=== PATIENT | female | born 1995 | race Caucasian/White ===

== ENCOUNTER → 2016-09-24 | Outpatient (REF) | payer BC | LOC: M SFHCWAGY 10:35 | PROVIDERS: ATTEND Family Medicine | DX: Z11.3 Encounter for screening for infections with a predominantly sexual mode of transmission (principal) | CPT/HCPCS: 87491; 87591; G0123 ==

== ENCOUNTER → 2016-12-15 | Outpatient (CLI) | payer BC ==
[~2016-12-15] MED LIST: PRENTAB8 PO
== END ==
LOC: M WUC 13:51
PROVIDERS: ATTEND Specialist
DX: O20.0 Threatened abortion (principal)

== ENCOUNTER → 2016-12-16 | Outpatient (CLI) | payer BC | LOC: M WUC 12:49 | PROVIDERS: ATTEND Specialist | DX: O20.0 Threatened abortion (principal) ==

== ENCOUNTER → 2017-02-24 | Outpatient (CLI) | payer BC ==
[2017-02-24 13:44] LABS: BASO % 0.6 % (0.0-1.0); EOS # 0.1 K/mm3 (0.0-0.50); EOS % 0.9 % (0.0-3.0); LARGE UNSTAINED CELL # 0.1 K/mm3 (0.0-0.4); LARGE UNSTAINED CELL % 0.9 % (0.0-4.0); LYMPH # 1.6 K/mm3 (1.5-6.5); LYMPH % 20.9 % (24.0-44.0); MEAN CORPUSCULAR HEMOGLOBIN 31.7 pg (27.0-33.0); MEAN CORPUSCULAR HGB CONC 33.9 g/dl (32.0-36.5); MEAN CORPUSCULAR VOLUME 93.5 fl (80.0-96.0); MONO # 0.3 K/mm3 (0.0-0.8); MONO % 4.1 % (0.0-5.0); NEUTROPHILS # 5.4 K/mm3 (1.8-7.7); NEUTROPHILS % 72.5 % (36.0-66.0); PLATELET COUNT, AUTOMATED 173 k/mm3 (150-450); RED CELL DISTRIBUTION WIDTH 11.6 % (11.5-14.5); WHITE BLOOD COUNT 7.5 K/mm3 (4.0-10.0)
[2017-02-25 10:05] LABS: HBsAg Prenatal NEGATIVE (NEGATIVE)
== END ==
LOC: M WUC 09:37
PROVIDERS: ATTEND Advanced Practice Midwife
DX: Z36 Encounter for antenatal screening of mother (principal); Z3A.00 Weeks of gestation of pregnancy not specified

== ENCOUNTER → 2017-02-24 | Outpatient (CLI) | payer BC | LOC: M WUC 09:33 | PROVIDERS: ATTEND Advanced Practice Midwife | DX: R10.2 Pelvic and perineal pain (principal) ==

== ENCOUNTER → 2017-02-26 | Outpatient (CLI) | payer BC | LOC: M WUC 09:11 | PROVIDERS: ATTEND Specialist | DX: O20.0 Threatened abortion (principal); Z3A.00 Weeks of gestation of pregnancy not specified ==

== ENCOUNTER → 2017-03-03 | Outpatient (CLI) | payer BC ==
--- NOTE | 2017-03-04 07:45 | REP ---
Clinical: Dating and viability. Technique: 12/11/2016 Findings: Single live early intrauterine is appreciated. Gestational sac with yolk sac and pole identified. [place]-rump length of 7 mm corresponds to 6 weeks 4 days gestational age with estimated date of delivery 10/23/2017 . heart rate equals 122 beats per minute. No gross abnormalities are identified. Impression: Single live early intrauterine at 6 weeks 4 days gestational age. Complete anatomical assessment should be performed and 19-20 weeks. Signed by Rivera Manriquez MD 03/04/2017 07:37 A
== END ==
LOC: M RAD 13:55
PROVIDERS: ATTEND Nurse Practitioner Women's Health
DX: O99.89 Other specified diseases and conditions complicating pregnancy, childbirth and the puerperium (principal); R10.30 Lower abdominal pain, unspecified; Z3A.00 Weeks of gestation of pregnancy not specified

== ENCOUNTER 2017-04-25 11:11 | Emergency (ER) | payer BC, MEDICAID ==
[~2017-04-25] VITALS: Ht 154.9 cm; Wt 72.3 kg
[2017-04-25 12:47] LABS: BASO % 0.2 % (0.0-1.0); EOS # 0.1 K/mm3 (0.0-0.50); EOS % 0.8 % (0.0-3.0); LARGE UNSTAINED CELL # 0.1 K/mm3 (0.0-0.4); LARGE UNSTAINED CELL % 1.1 % (0.0-4.0); LYMPH # 1.1 K/mm3 (1.5-6.5); LYMPH % 11.5 % (24.0-44.0); MEAN CORPUSCULAR HEMOGLOBIN 32.7 pg (27.0-33.0); MEAN CORPUSCULAR HGB CONC 35.6 g/dl (32.0-36.5); MEAN CORPUSCULAR VOLUME 91.8 fl (80.0-96.0); MONO # 0.4 K/mm3 (0.0-0.8); MONO % 3.8 % (0.0-5.0); NEUTROPHILS # 7.6 K/mm3 (1.8-7.7); NEUTROPHILS % 82.6 % (36.0-66.0); PLATELET COUNT, AUTOMATED 162 k/mm3 (150-450); RED CELL DISTRIBUTION WIDTH 12.8 % (11.5-14.5); WHITE BLOOD COUNT 9.2 K/mm3 (4.0-10.0)
[2017-04-25 13:23] LABS: ANION GAP 7 MEQ/L (8-16); BLOOD UREA NITROGEN 10 MG/DL (7-18); CALCIUM LEVEL 9.5 MG/DL (8.5-10.1); CARBON DIOXIDE LEVEL 25 MEQ/L (21-32); CHLORIDE LEVEL 106 MEQ/L (98-107); CREATININE FOR GFR 0.54 MG/DL (0.55-1.02); FREE T4 1.06 NG/DL (0.76-1.46); GLOMERULAR FILTRATION RATE > 60.0 (>60); GLUCOSE, FASTING 81 MG/DL (70-105); MAGNESIUM LEVEL 2.1 MG/DL (1.8-2.4); SODIUM LEVEL 138 MEQ/L (136-145)
[2017-04-25 13:46] VITALS: BP 125/60
--- NOTE | 2017-04-25 20:31 | ECGEPIP ---
Stationary ECG Study 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
== END 2017-04-25 13:48 | disposition home or self-care (01) ==
LOC: M ED 11:11
DX: R42 Dizziness and giddiness (principal); Z79.899 Other long term (current) drug therapy

== ENCOUNTER → 2017-04-28 | Outpatient (REF) | payer MEDICAID | LOC: M LAB REF 14:38 | PROVIDERS: ATTEND Specialist | DX: Z53.9 Procedure and treatment not carried out, unspecified reason (principal) ==

== ENCOUNTER → 2017-05-20 | Outpatient (CLI) | payer MEDICAID ==
--- NOTE | 2017-05-20 11:55 | REP ---
Clinical: Anatomical evaluation. Comparison: 03/03/2017 . Findings: Examination demonstrates a single live intrauterine in variable presentation. motion is identified by technologist. Placenta is noted posteriorly and grade zero without evidence for placenta previa or abruption. Amniotic fluid volume is normal. Cervix measures 3.5 cm in length and appears closed. No evidence for nuchal cord. Gestational age by LMP 18 weeks 0 days with GERMAN 10/21/2017 . Gestational age by current measurements 17 weeks 4 days with GERMAN 10/24/2017 . FHR equals 142 beats per minute. BPD 4.0 cm 18 weeks 1 day HC 14.5 cm 17 weeks 5 days AC 11.2 cm 17 weeks 0 days FL 2.5 cm 17 weeks 4 days HL 2.4 cm 17 weeks 3 days HC/AC ratio 1.29 Estimated weight 191 grams ( 23rd percentile). Anatomical assessment demonstrates normal structures including cranium, choroid plexus, cavum, cerebellum/posterior fossa, facial features, lungs, diaphragm, stomach, cord insertion/three-vessel cord, kidneys/bladder, spine, and extremities. Impression: 1. Single live intrauterine in variable presentation demonstrating appropriate interval growth. 2. Limited evaluation of the heart and ventricular outflow tracts noted along with asymmetry to the umbilical arteries. Findings may warrant reevaluation and follow-up. The remainder of the anatomical assessment is complete and normal. Signed by Rivera Manriquez MD 05/20/2017 11:46 A
== END ==
LOC: M RAD 10:33
PROVIDERS: ATTEND Obstetrics & Gynecology
DX: Z36 Encounter for antenatal screening of mother (principal); Z3A.17 17 weeks gestation of pregnancy

== ENCOUNTER 2017-06-10 18:16 | Outpatient (CLI) | payer MEDICAID ==
[~2017-06-10] VITALS: Ht 154.9 cm; Wt 76.6 kg
[2017-06-10 18:49] VITALS: BP 134/75
--- NOTE | 2017-06-10 19:24 | IPNPDOC ---
Subjective Date Seen The patient was seen on 06/10/17. Subjective Chief Complaint/HPI The patient is a 21-year-old female admitted with a reason for visit of Right Sided Pain Times 3 Days. SUBJECTIVE: Patient is a 21-year-old female 2 para 0010, at 21 weeks gestation presents with complaints of right-sided discomfort for 3 days. Denies regular cramping, contractions, bleeding, or loss of fluid OBJECTIVE PHYSICAL EXAMINATION: VITAL SIGNS: Please see below. GENERAL: No apparent distress, smiling, speaking with partner. ABDOMINAL: Abdomen soft, nontender, appropriate for gestation. Patient describes the pain as radiating from posterior hip line into right groin, right groin is tender to palpation left groin and remainder of abdomen is nontender. No contractions noted. heart 145. Reassuring for gestation. PSYCHOLOGICAL: Father of the baby is present and supportive. LABORATORY DATA: Please see below. MICROBIOLOGY: Please see below. ASSESSMENT AND PLAN: This is a 21-year-old female, 2, para 0010 with round ligament discomfort. Reviewed treatment for round ligament pain including support shoes, maternity support belt, good body mechanics, regular activity. Discharged home with instructions to keep next appointment. Follow-up ultrasound order given. Warnings reviewed VS, I&O, 24H, Fishbone Vital Signs/I&O Vital Signs Date Time Temp Pulse Resp B/P (MAP) Pulse Ox O2 Delivery O2 Flow Rate FiO2 06/10/17 18:49 98.2 73 16 134/75 (94) Rubina Sanchez CNM Jun 10, 2017 19:24
== END 2017-06-10 19:20 | disposition home or self-care (01) ==
LOC: M LDO 18:16
PROVIDERS: ATTEND Advanced Practice Midwife
DX: O26.892 Other specified pregnancy related conditions, second trimester (principal); R10.2 Pelvic and perineal pain; Z3A.21 21 weeks gestation of pregnancy

== ENCOUNTER → 2017-06-10 | Outpatient (CLI) | payer MEDICAID | LOC: M RAD 17:07 | PROVIDERS: ATTEND Specialist | DX: O26.892 Other specified pregnancy related conditions, second trimester (principal); R10.2 Pelvic and perineal pain; Z3A.21 21 weeks gestation of pregnancy ==

== ENCOUNTER → 2017-06-15 | Outpatient (CLI) | payer MEDICAID ==
--- NOTE | 2017-06-16 08:07 | REP ---
Obstetric ultrasound for anatomy: There is a single intrauterine gestation in a transverse lie with the head to the maternal right. heart rate is 100 x 7 beats per minute. There is sent is posterior. There is no placenta previa or abruptio. Placenta is grade zero. The amniotic fluid volume subjectively is normal. The cervix measures 3.4 cm length. By the ultrasound today the gestational age is 21 weeks 3 days with an GERMAN of 10/23/2017. By the first ultrasound gestational age is 21 weeks 3 days. By LMP gestational age is 21 weeks 5 days with an GERMAN of 10/21/2017. weight is 490 grams (0 pounds, 14 ounces). This is the 31st percentile for 21 weeks 5 days. The following anatomic structures are satisfactory demonstrated and unremarkable: Intracranial ventricles, cerebellum, face, upper lip, cavum septum pellucidum, choroid plexus, lungs, four-chamber heart, diaphragm, stomach, cord insertion, three-vessel cord, kidneys, spine and lower extremities. Suboptimally demonstrated because of position are the cardiac right and left ventricular outflow tracts, bladder and upper extremities. A followup study dedicated to these structures might be considered. Otherwise, there are no anomalies. Signed by Jean Deluca MD 06/16/2017 07:59 A
== END ==
LOC: M RAD 17:08
PROVIDERS: ATTEND Advanced Practice Midwife
DX: Z36.89 Encounter for other specified antenatal screening (principal); Z3A.21 21 weeks gestation of pregnancy

== ENCOUNTER → 2017-07-22 | Outpatient (CLI) | payer BC, MEDICAID ==
[2017-07-22 12:27] LABS: MEAN CORPUSCULAR HEMOGLOBIN 32.1 pg (27.0-33.0); MEAN CORPUSCULAR HGB CONC 33.5 g/dl (32.0-36.5); MEAN CORPUSCULAR VOLUME 95.7 fl (80.0-96.0); PLATELET COUNT, AUTOMATED 164 10^3/uL (150-450); RED CELL DISTRIBUTION WIDTH 12.5 % (11.5-14.5); WHITE BLOOD COUNT 11.4 10^3/uL (4.0-10.0)
== END ==
LOC: M LAB 10:16
PROVIDERS: ATTEND Advanced Practice Midwife
DX: Z34.82 Encounter for supervision of other normal pregnancy, second trimester (principal); Z36.89 Encounter for other specified antenatal screening

== ENCOUNTER 2017-10-19 22:02 | Inpatient (IN) | payer BC, MEDICAID ==
[2017-10-19] MEDS ORDERED: LR 1,000 ML IV (23:15)
[2017-10-19 23:48] LABS: HEMATOCRIT 27.9 % (36.0-47.0); HEMOGLOBIN 9.2 g/dl (12.0-16.0); MEAN CORPUSCULAR HEMOGLOBIN 28.4 pg (27.0-33.0); MEAN CORPUSCULAR VOLUME 86.1 fl (80.0-96.0); PLATELET COUNT, AUTOMATED 159 10^3/uL (150-450); RED BLOOD COUNT 3.24 10^6/uL (4.00-5.40); RED CELL DISTRIBUTION WIDTH 14.4 % (11.5-14.5); WHITE BLOOD COUNT 16.2 10^3/uL (4.0-10.0)
[2017-10-20] MEDS ORDERED: OXYTOCIN 30 UNITS IN 0.9% NaCl 500ML IV BAG (J2590) As Ordered (00:27)
[2017-10-20] MEDS ORDERED: FENTANYL 2MCG/ML ROPIVACAINE 0.2% IN 0.9% NACL 200ML IVBAG As Ordered (00:28)
[2017-10-20] MEDS ORDERED: REFRIGERATOR IV KEYS XX (01:49)
[2017-10-20] MEDS ORDERED: diphenhydrAMINE INJ 50MG/ML VIAL (J1200) IV (01:49)
[2017-10-20] MEDS ORDERED: NALOXONE INJ 0.4 MG/1 ML VIAL (J2310) IV (01:49)
[2017-10-20] MEDS ORDERED: EPIDURAL/PCA KEYS XX (01:49)
[2017-10-20] MEDS ORDERED: ONDANSETRON 4MG/2ML VIAL (J2405) IV (01:49)
[2017-10-20] MEDS ORDERED: EPIDURAL COMMENT XX (01:49)
[2017-10-20] MEDS ORDERED: LACTATED RINGER'S 1000 ML IV (01:49)
[2017-10-20] MEDS ORDERED: ePHEDrine INJ 50 MG/ML VIAL IV (01:49)
[2017-10-20] MEDS ORDERED: FENTANYL/ROPIVACAINE/NACL BAG 200 ML EPIDURAL (01:49)
[2017-10-20] MEDS ORDERED: RHOGAM 300 MCG (1500 IU) INJ (J2790) IM (05:15)
[2017-10-20] MEDS ORDERED: DIBUCAINE 1% OINTMENT 30GM TOP (05:15)
[2017-10-20] MEDS: OXYTOCIN DRIP 30 UNITS in APPROPRIATE DILUENT 1 EA IV (05:56)
[2017-10-20] MEDS: IBUPROFEN 800 MG TAB PO ×3 (05:56→23:45)
[2017-10-20] MEDS: LR 1,000 ML IV (05:56)
[2017-10-20] MEDS: LACTATED RINGER'S 1000 ML IV (05:57)
[2017-10-20] MEDS: ACETAMINOPHEN 500 MG TAB PO ×3 (07:05→19:52)
[2017-10-20] MEDS: PRENATAL VITAMINS CHEWABLE TABLET PO (07:54)
[2017-10-20] MEDS: PERCOCET 5MG/325MG TAB PO (23:45)
[2017-10-21] MEDS: ACETAMINOPHEN 500 MG TAB PO (05:47)
[2017-10-21] MEDS: IBUPROFEN 800 MG TAB PO ×2 (08:05→19:34)
[2017-10-21] MEDS: PRENATAL VITAMINS CHEWABLE TABLET PO (08:05)
[2017-10-21] MEDS: PERCOCET 5MG/325MG TAB PO ×3 (11:53→21:07)
[2017-10-21] MEDS: DOCUSATE SODIUM 100 MG CAP PO (19:34)
[2017-10-22] MEDS: PERCOCET 5MG/325MG TAB PO ×2 (02:18→07:47)
[2017-10-22] MEDS: PRENATAL VITAMINS CHEWABLE TABLET PO (09:00)
[2017-10-22] MEDS: IBUPROFEN 800 MG TAB PO (12:03)
[2017-10-22] MEDS: MEASLES,MUMPS,RUBELLA VACCINE INJ (MMR-II) (90707) SC (14:00)
== END 2017-10-22 14:10 | disposition home or self-care (01) | DRG 560 ==
LOC: M LDO 22:02 → M OBS 10-20 07:56 → M LDI 23:15
PROVIDERS: Obstetrics & Gynecology
PROC: 10E0XZZ Delivery of Products of Conception, External Approach (ICD-10-PCS; principal; 2017-10-20)
PROC: 0HQ9XZZ Repair Perineum Skin, External Approach (ICD-10-PCS; 2017-10-20)
DX: O69.1XX0 Labor and delivery complicated by cord around neck, with compression, not applicable or unspecified (principal); O70.0 First degree perineal laceration during delivery; Z3A.39 39 weeks gestation of pregnancy; Z37.0 Single live birth

== ENCOUNTER → 2017-10-22 | Day surgery (SDC) | payer BC, MEDICAID ==
[2017-10-22] MEDS: NS 1,000 ML IV (19:54)
== END | disposition home or self-care (01) ==
LOC: M ED 19:19 → M SDC 21:45
DX: G97.1 Other reaction to spinal and lumbar puncture (principal)
CPT/HCPCS: 62273

== ENCOUNTER → 2017-11-20 | Outpatient (REF) | payer BC, MEDICAID ==
[2017-11-20 21:49] LABS: APPEARANCE, URINE CLEAR (CLEAR); BACTERIA, URINE AUTO NEGATIVE (NEGATIVE); BILIRUBIN, URINE AUTO NEGATIVE (NEGATIVE); BLOOD, URINE BLOOD 2+ (NEGATIVE); COLOR, URINE STRAW (YELLOW); GLUCOSE, URINE (UA) AUTO NEGATIVE (NEGATIVE); KETONE, URINE AUTO NEGATIVE (NEGATIVE); LEUKOCYTE ESTERASE, URINE AUTO 2+ (NEGATIVE); NITRITE, URINE AUTO NEGATIVE (NEGATIVE); PROTEIN, URINE AUTO NEGATIVE (NEGATIVE); RBC, URINE AUTO 1 /HPF (0-3); SPECIFIC GRAVITY URINE AUTO 1.005 (1.002-1.035); SQUAMOUS EPITHELIAL CELL UR AU 0 /HPF (0-6); UROBILINOGEN, URINE AUTO 0.2 mg/dL (0.0-2.0); WBC, URINE AUTO 8 /HPF (0-3)
== END ==
LOC: M LAB REF 21:27
DX: N39.0 Urinary tract infection, site not specified (principal)
CPT/HCPCS: 81001

== ENCOUNTER → 2018-04-05 | Outpatient (CLI) | payer BC, MEDICAID | LOC: M PAIN 14:15 | DX: M54.2 Cervicalgia (principal); M79.1 Myalgia; M54.5 Low back pain; G89.29 Other chronic pain; F33.9 Major depressive disorder, recurrent, unspecified; F41.9 Anxiety disorder, unspecified; G47.00 Insomnia, unspecified; Z79.899 Other long term (current) drug therapy; Z87.891 Personal history of nicotine dependence | CPT/HCPCS: G0463 ==

== ENCOUNTER → 2018-04-07 | Outpatient (CLI) | payer BC, MEDICAID | LOC: M RAD 16:52 | DX: M54.2 Cervicalgia (principal) | CPT/HCPCS: 72141 ==

== ENCOUNTER → 2018-04-26 | Outpatient (CLI) | payer BC, MEDICAID | LOC: M PAIN 14:30 | DX: M50.10 Cervical disc disorder with radiculopathy, unspecified cervical region (principal); G89.29 Other chronic pain; F33.0 Major depressive disorder, recurrent, mild; F41.9 Anxiety disorder, unspecified; G47.00 Insomnia, unspecified; Z79.899 Other long term (current) drug therapy; Z87.891 Personal history of nicotine dependence | CPT/HCPCS: G0463 ==

== ENCOUNTER → 2018-05-08 | Outpatient (CLI) | payer MEDICAID ==
[~2018-05-08] MED LIST changes: +ISOVUE-M 300 61% 15ML VIAL (Q9967) As Ordered; +LIDOCAINE 1% SDV INJ 30 ML VIAL As Ordered; -PRENTAB8 PO; +diazePAM 5 MG TAB As Ordered; +methylPREDNISolone SUSP 40 MG/ML (DEPO-medrol) VIAL (J1030) As Ordered; +oxyCODONE 5MG TAB As Ordered
== END ==
LOC: M PAIN 12:45
DX: G89.29 Other chronic pain (principal); M50.10 Cervical disc disorder with radiculopathy, unspecified cervical region; F32.9 Major depressive disorder, single episode, unspecified; F41.9 Anxiety disorder, unspecified; G47.00 Insomnia, unspecified; Z79.899 Other long term (current) drug therapy
CPT/HCPCS: J1030

== ENCOUNTER → 2018-05-25 | Outpatient (CLI) | payer MEDICAID, BC | LOC: M PAIN 15:30 | DX: Z53.29 Procedure and treatment not carried out because of patient's decision for other reasons (principal) ==

== ENCOUNTER 2018-08-08 18:38 | Emergency (ER) | payer BC, MEDICAID ==
[2018-08-08] MEDS: diphenhydrAMINE 50 MG CAP PO (19:51)
[2018-08-08 20:08] LABS: BASO % 0.3 % (0.0-1.0); EOS % 0.4 % (0.0-3.0); HEMATOCRIT 42.4 % (36.0-47.0); HEMOGLOBIN 14.4 g/dl (12.0-15.5); IMMATURE GRANULOCYTE % 0.3 % (0-3.0); MEAN CORPUSCULAR HEMOGLOBIN 30.1 pg (27.0-33.0); MEAN CORPUSCULAR VOLUME 88.7 fl (80.0-96.0); MONO # 0.4 10^3/uL (0.0-0.8); MONO % 5.5 % (0.0-5.0); NEUTROPHILS # 5.4 10^3/uL (1.8-7.7); NEUTROPHILS % 68.5 % (36.0-66.0); PLATELET COUNT, AUTOMATED 235 10^3/uL (150-450); RED BLOOD COUNT 4.78 10^6/uL (4.00-5.40); RED CELL DISTRIBUTION WIDTH 13.1 % (11.5-14.5); WHITE BLOOD COUNT 7.8 10^3/uL (4.0-10.0)
[2018-08-08 20:19] LABS: ANION GAP 8 MEQ/L (8-16); BLOOD UREA NITROGEN 7 MG/DL (7-18); C REACTIVE PROTEIN QUANTITATIV < 0.30 MG/DL (0.00-0.30); CALCIUM LEVEL 8.4 MG/DL (8.5-10.1); CARBON DIOXIDE LEVEL 25 MEQ/L (21-32); CHLORIDE LEVEL 109 MEQ/L (98-107); CREATININE FOR GFR 0.74 MG/DL (0.55-1.30); GLOMERULAR FILTRATION RATE > 60.0 (>60); GLUCOSE, FASTING 98 MG/DL (70-100); POTASSIUM SERUM 3.9 MEQ/L (3.5-5.1); SODIUM LEVEL 142 MEQ/L (136-145)
[2018-08-08 20:55] LABS: ERYTHROCYTE SEDIMENTATION RATE 6 mm/hr (0-20)
[2018-08-08] MEDS: IBUPROFEN 600 MG TAB PO (21:45)
[2018-08-08] MEDS: predniSONE 20 MG TAB PO (21:45)
== END 2018-08-08 21:51 | disposition home or self-care (01) ==
LOC: M ED 18:38
DX: M79.89 Other specified soft tissue disorders (principal); J45.909 Unspecified asthma, uncomplicated; M54.12 Radiculopathy, cervical region; Z79.899 Other long term (current) drug therapy
CPT/HCPCS: 80048

== ENCOUNTER 2018-10-22 00:44 | Emergency (ER) | payer BC, MEDICAID ==
[~2018-10-22] VITALS: Ht 154.9 cm; Wt 67.3 kg
[2018-10-22 00:44] VITALS: BP 105/61
[~2018-10-22 00:44] MED LIST changes: +COLA100C5 PO; +DULO1CAP3; +IBUP-1022 PO; +IBUP-1114 PO; -ISOVUE-M 300 61% 15ML VIAL (Q9967) As Ordered; -LIDOCAINE 1% SDV INJ 30 ML VIAL As Ordered; +MAPA500T2 PO; +PRED20TA PO; +PRENTAB8 PO; +TIZA6CAP; -diazePAM 5 MG TAB As Ordered; -methylPREDNISolone SUSP 40 MG/ML (DEPO-medrol) VIAL (J1030) As Ordered; -oxyCODONE 5MG TAB As Ordered
== END 2018-10-22 02:02 | disposition left against medical advice (07) ==
LOC: M ED 00:44
DX: Z53.21 Procedure and treatment not carried out due to patient leaving prior to being seen by health care provider (principal)

== ENCOUNTER 2018-10-25 22:43 | Emergency (ER) | payer BC, MEDICAID ==
[~2018-10-25] VITALS: Ht 154.9 cm; Wt 69.1 kg
[2018-10-25] MEDS ORDERED: REGL10TA6 PO (22:52)
[2018-10-25] MEDS ORDERED: SUMA100T2 (22:52)
[2018-10-25] MEDS ORDERED: NS 1,000 ML IV ONE (23:30)
[2018-10-25] MEDS ORDERED: METOCLOPRAMIDE INJ 10MG/2ML VIAL (J2765) IV ONE (23:30)
[2018-10-26 00:13] LABS: BASO % 0.4 % (0.0-1.0); EOS # 0.1 10^3/uL (0.0-0.50); EOS % 0.9 % (0.0-3.0); HEMATOCRIT 35.2 % (36.0-47.0); HEMOGLOBIN 12.1 g/dl (12.0-15.5); LYMPH # 1.4 10^3/uL (1.5-6.5); LYMPH % 18.9 % (24.0-44.0); MEAN CORPUSCULAR HEMOGLOBIN 29.5 pg (27.0-33.0); MEAN CORPUSCULAR HGB CONC 34.4 g/dl (32.0-36.5); MEAN CORPUSCULAR VOLUME 85.9 fl (80.0-96.0); MONO # 0.5 10^3/uL (0.0-0.8); MONO % 7.3 % (0.0-5.0); NEUTROPHILS # 5.3 10^3/uL (1.8-7.7); NEUTROPHILS % 71.8 % (36.0-66.0); PLATELET COUNT, AUTOMATED 149 10^3/uL (150-450); WHITE BLOOD COUNT 7.4 10^3/uL (4.0-10.0)
[2018-10-26 00:18] LABS: ALBUMIN 3.2 GM/DL (3.2-5.2); ALT/SGPT 522 U/L (12-78); BILIRUBIN,TOTAL 0.4 MG/DL (0.2-1.0); BLOOD UREA NITROGEN 4 MG/DL (7-18); CALCIUM LEVEL 8.3 MG/DL (8.5-10.1); CARBON DIOXIDE LEVEL 24 MEQ/L (21-32); CHLORIDE LEVEL 107 MEQ/L (98-107); CK-MB VALUE MASS < 1.0 NG/ML (<3.6); CPK CREATINE PHOSPHOKINASE 48 U/L (26-192); CREATININE FOR GFR 0.46 MG/DL (0.55-1.30); GLOMERULAR FILTRATION RATE > 60.0 (>60); GLUCOSE, FASTING 78 MG/DL (70-100); MB/CK RELATIVE INDEX 2.08 (< OR =4); POTASSIUM SERUM 3.5 MEQ/L (3.5-5.1); SODIUM LEVEL 141 MEQ/L (136-145); TOTAL PROTEIN 6.3 GM/DL (6.4-8.2); TROPONIN I < 0.02 NG/ML (< 0.10)
--- NOTE | 2018-10-26 01:49 | REPVR ---
EXAM: US Abdomen Limited, Right Upper Quadrant EXAM DATE/TIME: 10/26/2018 1:00 AM CLINICAL HISTORY: 23 years old, female; Abnormal findings; Abnormal lab test; Elevated liver enzymes; Additional info: Elevated lft's, vomiting TECHNIQUE: Real-time ultrasound of the abdomen with image documentation. Examination was focused on the right upper quadrant. COMPARISON: No relevant prior studies available. FINDINGS: Liver: Subtle increased echogenicity of the portal triads, a nonspecific finding which can be seen with hepatitis. Gallbladder: No gallstones. No gallbladder wall thickening or pericholecystic fluid. Negative sonographic Jon's sign, as per the performing senior java architect. Common bile duct: No stones. No ductal dilatation. Pancreas: Unremarkable as visualized. Right kidney: No mass. No definite stones. No hydronephrosis. IMPRESSION: Subtle increased echogenicity of the portal triads, a nonspecific finding which can be seen with hepatitis. Electronically signed by: Tre Alan On 10/26/2018 01:48:50 AM
[2018-10-26 03:22] VITALS: BP 111/69
--- NOTE | 2018-10-26 12:11 | ED PDOC ---
Post-Departure Follow-Up qing foster faxed formal report of petey garcia for fu Lencho Hitchcock MD Oct 26, 2018 12:11
--- NOTE | 2018-10-27 00:43 | ECGEPIP ---
Stationary ECG Study 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
[2018-10-27 11:42] LABS: HEPATITIS B CORE ANTIBODY IGM NEGATIVE (NEGATIVE)
[2018-10-27 11:57] LABS: HEPATITIS B SURFACE ANTIGEN NEGATIVE (NEGATIVE)
[2018-10-27 12:01] LABS: HEPATITIS C VIRUS ABY INDEX > 11.0 INDEX (<0.8)
[2018-10-27 12:26] LABS: HEPATITIS A ANTIBODY IGM NEGATIVE (NEGATIVE)
[2018-10-27] MEDS ORDERED: OSEL75CA PO (16:52)
[2018-10-27] MEDS ORDERED: ONDA4TAB6 (16:52)
[2018-10-27] MEDS ORDERED: PRENATAL VIT PO (23:56)
== END 2018-10-26 03:34 | disposition left against medical advice (07) ==
LOC: M ED 22:43
DX: O99.411 Diseases of the circulatory system complicating pregnancy, first trimester (principal); R07.9 Chest pain, unspecified; R06.02 Shortness of breath; O99.281 Endocrine, nutritional and metabolic diseases complicating pregnancy, first trimester; E86.0 Dehydration; O21.9 Vomiting of pregnancy, unspecified; O99.111 Other diseases of the blood and blood-forming organs and certain disorders involving the immune mechanism complicating pregnancy, first trimester; R94.5 Abnormal results of liver function studies; O99.511 Diseases of the respiratory system complicating pregnancy, first trimester; J45.909 Unspecified asthma, uncomplicated; O99.341 Other mental disorders complicating pregnancy, first trimester; F41.9 Anxiety disorder, unspecified; Z3A.12 12 weeks gestation of pregnancy; Z79.899 Other long term (current) drug therapy
CPT/HCPCS: 76705; 80053; 81001; 82550; 82553; 84484; 85025; 86705; 86709; 86803; 87086; 87340; 87521; 93005; 96374; 99284; J2765

== ENCOUNTER 2018-10-27 16:36 | Emergency (ER) | payer BC, MEDICAID ==
[~2018-10-27] VITALS: Ht 154.9 cm; Wt 69.1 kg
[~2018-10-27 16:36] MED LIST changes: +REGL10TA6 PO; +SUMA100T2
[2018-10-27] MEDS ORDERED: ONDA4TAB6 (16:52)
[2018-10-27] MEDS ORDERED: OSEL75CA PO (16:52)
[2018-10-27] MEDS ORDERED: NS 1,000 ML IV ONE (17:15)
[2018-10-27 17:35] LABS: BASO % 0.5 % (0.0-1.0); HEMATOCRIT 33.7 % (36.0-47.0); HEMOGLOBIN 11.7 g/dl (12.0-15.5); LYMPH # 0.6 10^3/uL (1.5-6.5); LYMPH % 14.5 % (24.0-44.0); MEAN CORPUSCULAR HEMOGLOBIN 29.6 pg (27.0-33.0); MEAN CORPUSCULAR HGB CONC 34.7 g/dl (32.0-36.5); MEAN CORPUSCULAR VOLUME 85.3 fl (80.0-96.0); MONO # 0.5 10^3/uL (0.0-0.8); MONO % 12.7 % (0.0-5.0); NEUTROPHILS # 2.9 10^3/uL (1.8-7.7); NEUTROPHILS % 72.1 % (36.0-66.0); PLATELET COUNT, AUTOMATED 137 10^3/uL (150-450); RED BLOOD COUNT 3.95 10^6/uL (4.00-5.40)
[2018-10-27 18:03] LABS: ALBUMIN 3.2 GM/DL (3.2-5.2); ALT/SGPT 589 U/L (12-78); BILIRUBIN,DIRECT 0.3 MG/DL (0.0-0.2); BILIRUBIN,TOTAL 0.5 MG/DL (0.2-1.0); BLOOD UREA NITROGEN 5 MG/DL (7-18); CALCIUM LEVEL 8.5 MG/DL (8.5-10.1); CARBON DIOXIDE LEVEL 19 MEQ/L (21-32); CHLORIDE LEVEL 110 MEQ/L (98-107); GLOMERULAR FILTRATION RATE > 60.0 (>60); GLUCOSE, FASTING 76 MG/DL (70-100); LIPASE 80 U/L (73-393); POTASSIUM SERUM 3.7 MEQ/L (3.5-5.1); SODIUM LEVEL 140 MEQ/L (136-145); TOTAL PROTEIN 6.4 GM/DL (6.4-8.2)
[2018-10-27 18:13] LABS: INFLUENZA A AMPLIFICATION POSITIVE (NEGATIVE); INFLUENZA B AMPLIFICATION NEGATIVE (NEGATIVE)
[2018-10-27 19:13] VITALS: BP 115/60
[2018-10-27] MEDS ORDERED: PRENATAL VIT PO (23:56)
[2018-11-01 00:07] LABS: HEPATITIS A IgG TOTAL Negative (Negative); HEPATITIS B CORE ANTIBODY IGG Positive (Negative)
[2018-11-02 00:06] LABS: HEPATITIS C QUANTITATION 52800 IU/mL (.); HEPATITIS C VIRUS GENOTYPE 1b (.)
== END 2018-10-27 19:14 | disposition home or self-care (01) ==
LOC: M ED 16:36
DX: O21.9 Vomiting of pregnancy, unspecified (principal)

== ENCOUNTER 2018-10-27 22:33 | Inpatient (IN) | payer BC, MEDICAID ==
[~2018-10-27] VITALS: Ht 154.9 cm; Wt 63.3 kg
[~2018-10-27 22:33] MED LIST changes: +ONDA4TAB6; +OSEL75CA PO
[2018-10-27 23:00] VITALS: BP 111/62
--- NOTE | 2018-10-27 23:11 | HPEPDOC ---
[facility] Medical History & Physical Date of Admission Oct 27, 2018 Primary Care Physician: MARIAELENA AGUAYO MD History and Physical CHIEF COMPLAINT: Hyperemesis gravidarum HISTORY OF PRESENT ILLNESS: 23 yo GERMAN 05/13/19. Presents for IV hydration due to prolonged episodes of nausea and vomiting. Pt has presented to [facility] and [facility] ED on multiple occasions for IV hydration with minimal relief despite fluids and antiemetics. + Influenza A in ED tonight. panel significant for Hepatitis C AB >11.0. Confirmatory labs are pending. LFT elevated. PAST MEDICAL HISTORY: 1. Depression/anxiety 2. Asthma 3. Remote history of IV drug use PAST SURGICAL HISTORY: 1. Noncontributory SOCIAL HISTORY: Marital status: Single. Children: 1 year old daughter Tobacco use:Denies ETOH: Denies Illicit drug use: Remote history Heroin, cocaine and marijuana FAMILY HISTORY: Noncontributor ALLERGIES: Please see below. REVIEW OF SYSTEMS: CONSTITUTIONAL: Alert, oriented, mild distress HEENT: WNL CARDIOVASCULAR: Normotensive, HRR RESPIRATORY: Clear and unlabored GASTROINTESTINAL: Anorexia, nausea, vomiting GENITOURINARY: IUP GERMAN 05/13/19 SKIN: Intact MUSCULOSKELETAL: Equal ROM and strength NEUROLOGICAL: Intact PSYCHIATRIC: Appropriate ENDOCRINE: WNL HEMATOLOGIC/LYMPHATIC: See labs HOME MEDICATIONS: Please see below. PHYSICAL EXAMINATION: GENERAL APPEARANCE: Mild distress HEENT: WNL CARDIOVASCULAR:Normotensive, HRR LUNGS: Clear, unlabored. ABDOMEN: Soft. IUP @ 12 weeks MUSCULOSKELETAL: WNL EXTREMITIES: Equal strength and motion NEUROLOGICAL: Intact PSYCHIATRIC: Appropriate LABORATORY DATA: See below. MICROBIOLOGY: Please see below. ASSESSMENT: IUP @ 12 weeks. Hyperemesis gravidarum. Influenza A . PLAN: 1. IV hydration 2. Slow advancement of diet Home Medications Scheduled Metoclopramide HCl (Reglan) 10 Mg Tab, 10 MG PO TID before food and bedtime Oseltamivir Phosphate (Tamiflu) 75 Mg Cap, 1 CAP PO BID Miscellaneous Medications Ondansetron (Ondansetron Odt) 4 Mg Tab Sumatriptan Succinate (Sumatriptan Succinate) 100 Mg Tab Allergies Coded Allergies: No Known Allergies (Unverified , 12/11/16) Rubina Sanchez CNM Oct 27, 2018 23:11
[2018-10-27] MEDS ORDERED: PROMETHAZINE 12.5 MG SUPP PR PRN (23:15)
[2018-10-27] MEDS ORDERED: METOCLOPRAMIDE INJ 10MG/2ML VIAL (J2765) IV PRN (23:15)
[2018-10-27] MEDS ORDERED: ONDANSETRON 4MG/2ML VIAL (J2405) IV PRN (23:15)
[2018-10-27] MEDS ORDERED: MULTIVITAMIN -ADULT INJECTION 10 ML, THIAMINE INJection 100 MG, FOLIC ACID 1 MG in NS 1... IV ONE (23:30)
[2018-10-27] MEDS ORDERED: PRENATAL VIT PO (23:56)
[2018-10-27 23:57] VITALS: BP 111/62
[2018-10-28] MEDS ORDERED: PROMETHAZINE 25 MG TAB PO PRN (01:15)
[2018-10-28 01:33] LABS: APPEARANCE, URINE HAZY (CLEAR); BACTERIA, URINE AUTO 1+ (NEGATIVE); BILIRUBIN, URINE AUTO NEGATIVE (NEGATIVE); BLOOD, URINE BLOOD NEGATIVE (NEGATIVE); COLOR, URINE YELLOW (YELLOW); GLUCOSE, URINE (UA) AUTO NEGATIVE (NEGATIVE); KETONE, URINE AUTO 2+ mg/dL (NEGATIVE); LEUKOCYTE ESTERASE, URINE AUTO NEGATIVE (NEGATIVE); MUCUS, URINE SMALL (NEGATIVE); NITRITE, URINE AUTO NEGATIVE (NEGATIVE); PROTEIN, URINE AUTO 2+ mg/dL (NEGATIVE); RBC, URINE AUTO 6 /HPF (0-3); SPECIFIC GRAVITY URINE AUTO 1.026 (1.002-1.035); SQUAMOUS EPITHELIAL CELL UR AU 5 /HPF (0-6); WBC, URINE AUTO 4 /HPF (0-3)
[2018-10-28] MEDS: ACETAMINOPHEN 500 MG TAB PO PRN ×2 (01:51→07:00)
[2018-10-28 04:00] VITALS: BP 122/62
[2018-10-28 07:29] LABS: ALBUMIN 2.8 GM/DL (3.2-5.2); ALT/SGPT 466 U/L (12-78); BILIRUBIN,TOTAL 0.6 MG/DL (0.2-1.0); BLOOD UREA NITROGEN 4 MG/DL (7-18); CALCIUM LEVEL 7.5 MG/DL (8.5-10.1); CARBON DIOXIDE LEVEL 17 MEQ/L (21-32); CHLORIDE LEVEL 113 MEQ/L (98-107); CREATININE FOR GFR 0.38 MG/DL (0.55-1.30); GLOMERULAR FILTRATION RATE > 60.0 (>60); GLUCOSE, FASTING 72 MG/DL (70-100); POTASSIUM SERUM 3.2 MEQ/L (3.5-5.1); SODIUM LEVEL 140 MEQ/L (136-145)
[2018-10-28] MEDS: KCL 20MEQ IN 0.45NS 1000ML 1,000 ML IV SCH ×2 (07:45→09:12)
[2018-10-28 08:00] VITALS: BP 122/58
[2018-10-28] MEDS ORDERED: MULTIVITAMIN -ADULT INJECTION 10 ML, THIAMINE INJection 100 MG, FOLIC ACID 1 MG in NS 1... IV SCH ×2 (09:00→21:00)
[2018-10-28] MEDS ORDERED: NS 0.45% 1,000 ML IV SCH (09:37)
[2018-10-28 12:00] VITALS: BP 124/68
[2018-10-28] MEDS: OSELTAMIVIR PHOSPHATE 75 MG CAP (TAMIFLU) PO SCH ×2 (14:57→21:04)
[2018-10-28 16:00] VITALS: BP 122/71
[2018-10-28 20:00] VITALS: BP 135/67
[2018-10-28] MEDS ORDERED: diphenhydrAMINE 50 MG CAP PO SCH (21:00)
[2018-10-29] VITALS: BP 111/61
[2018-10-29 04:00] VITALS: BP 125/69
[2018-10-29 07:57] LABS: ALBUMIN 2.7 GM/DL (3.2-5.2); ALT/SGPT 354 U/L (12-78); BILIRUBIN,TOTAL 0.3 MG/DL (0.2-1.0); BLOOD UREA NITROGEN 5 MG/DL (7-18); CALCIUM LEVEL 7.5 MG/DL (8.5-10.1); CARBON DIOXIDE LEVEL 20 MEQ/L (21-32); CHLORIDE LEVEL 113 MEQ/L (98-107); CREATININE FOR GFR 0.49 MG/DL (0.55-1.30); GLOMERULAR FILTRATION RATE > 60.0 (>60); GLUCOSE, FASTING 76 MG/DL (70-100); POTASSIUM SERUM 3.2 MEQ/L (3.5-5.1); SODIUM LEVEL 141 MEQ/L (136-145)
[2018-10-29 08:00] VITALS: BP 134/77
[2018-10-29] MEDS: OSELTAMIVIR PHOSPHATE 75 MG CAP (TAMIFLU) PO SCH (09:05)
--- NOTE | 2018-12-04 02:33 | DSES ---
DATE OF ADMISSION: 10/27/2018 DATE OF DISCHARGE: 10/29/2018 A 23-year-old G3 (), para (P) 1 female at 15 weeks gestation presents with multiple episodes of nausea and vomiting over a prolonged period. She has had several visits to the emergency room for intravenous (IV) hydration and anti-nausea medications. She also tested positive for influenza A on the day of admission. In spite of multiple treatments her hyperemesis gravidarum has continued. HOSPITAL COURSE: The patient was admitted on 10/27/2018 for diagnosis of hyperemesis gravidarum in early . She received continuous intravenous (IV) fluids and intravenous (IV) anti-emetic treatment. She made some progress over the course of the next 48 hours. On hospital day number three she was deemed stable for discharge and she was able to tolerate small amounts of solids as well as liquids. ADMISSION DIAGNOSES: 1. Early . 2. Hyperemesis gravidarum. DISCHARGE DIAGNOSES: 1. Early . 2. Hyperemesis gravidarum. DISPOSITION: The patient will follow up with [facility] in two weeks. Instructions were reviewed. edited: 12/04/2018 0838 lesa JOHNSON
== END 2018-10-29 09:50 | disposition home or self-care (01) | DRG 566 ==
LOC: M ED INP 22:33 → M PED 22:49
PROVIDERS: ADMIT Advanced Practice Midwife; ATTEND Advanced Practice Midwife
DX: O21.0 Mild hyperemesis gravidarum (principal); J10.1 Influenza due to other identified influenza virus with other respiratory manifestations; Z3A.12 12 weeks gestation of pregnancy; O99.511 Diseases of the respiratory system complicating pregnancy, first trimester

== ENCOUNTER 2018-12-26 01:54 | Outpatient (CLI) | payer BC, MEDICAID ==
[~2018-12-26] VITALS: Ht 154.9 cm; Wt 70.8 kg
[~2018-12-26 01:54] MED LIST changes: +PRENATAL VIT PO
[2018-12-26 02:14] VITALS: BP 105/52
[2018-12-26 02:42] LABS: AMORPHOUS SEDIMENT SMALL (NEGATIVE); APPEARANCE, URINE TURBID (CLEAR); BACTERIA, URINE AUTO 1+ (NEGATIVE); BILIRUBIN, URINE AUTO NEGATIVE (NEGATIVE); BLOOD, URINE BLOOD 1+ (NEGATIVE); COLOR, URINE YELLOW (YELLOW); GLUCOSE, URINE (UA) AUTO NEGATIVE (NEGATIVE); KETONE, URINE AUTO NEGATIVE (NEGATIVE); LEUKOCYTE ESTERASE, URINE AUTO 3+ (NEGATIVE); MUCUS, URINE SMALL (NEGATIVE); NITRITE, URINE AUTO NEGATIVE (NEGATIVE); PROTEIN, URINE AUTO 1+ mg/dL (NEGATIVE); RBC, URINE AUTO 42 /HPF (0-3); SPECIFIC GRAVITY URINE AUTO 1.011 (1.002-1.035); SQUAMOUS EPITHELIAL CELL UR AU 10 /HPF (0-6); UROBILINOGEN, URINE AUTO 0.2 mg/dL (0.0-2.0); WBC, URINE AUTO TNTC /HPF (0-3)
[2018-12-26] MEDS ORDERED: KEFL500C17 PO (03:59)
[2018-12-26] MEDS ORDERED: CEPHALEXIN 500 MG CAP PO ONE (04:00)
--- NOTE | 2018-12-26 05:22 | IPNPDOC ---
Text Note Date of Service The patient was seen on 12/26/18. NOTE Subjective: Patient is a 23-year-old female who is a at 20.2 weeks gestation with an GERMAN of 05/13/19 based off of her LMP and consistent with her 1st trimester ultrasound. Her has been complicated by a new diagnosis of Hepatitis C, anxiety, depression, and asthma. She presents to L&D with complaints of left abdominal pain and left flank pain. She reports this started yesterday at 2 pm. The patient reports she is not having any contractions, leaking of fluid, or vaginal bleeding. She reports active movement. States she feels frequency and difficulty emptying her bladder. Medical Hx: depression, anxiety, asthma, hepatitis C due to history of IV drug use Surgical:none Family History: non contributory Objective: VS and labs: see below. FHR 155. Contractions: none. A+Ox3; Respiratory rate is regular. Abdomen: soft with palpation. +CVA tenderness on left side. Assessment: IUP at 20.2 weeks gestation; UTI Plan: Reviewed diagnosis of UTI. Patient given 1 dose of keflex while in hospital and a script for 500 mg QID to be take daily for 7 days. She has transportation to cook pickled meat her medication in the morning. She is to call and make appointment in office for routine OB care as she no showed her last appointment. Reviewed to call with worsening symptoms and/or fever. Reviewed access to care, movement, and danger signs to report. VS,Fishbone, I+O VS, Fishbone, I+O Vital Signs Date Time Temp Pulse Resp B/P (MAP) Pulse Ox O2 Delivery O2 Flow Rate FiO2 12/26/18 02:14 98.4 85 16 105/52 (69) Item Value Date Time Urine Color YELLOW 12/26/18225 Urine Appearance TURBID H 12/26/18225 Urine pH 7.0 UNITS 12/26/18225 Urine Specific Sublimity 1.011 12/26/18225 Urine Protein 1+ mg/dL H 12/26/18225 Urine Glucose (UA) NEGATIVE mg/dL 12/26/18225 Urine Ketones NEGATIVE mg/dL 12/26/18225 Urine Blood 1+ H 12/26/18225 Urine Nitrite NEGATIVE 12/26/18225 Urine Bilirubin NEGATIVE 12/26/18225 Urine Urobilinogen 0.2 mg/dL 12/26/18225 Urine Leukocyte Esterase 3+ H 12/26/18225 Urine WBC (Auto) TNTC /HPF H 12/26/18225 Urine RBC (Auto) 42 /HPF H 12/26/18225 Urine Hyaline Casts (Auto) 0 /LPF 12/26/18225 Urine Bacteria (Auto) 1+ H 12/26/18225 Urine Squamous Epithelial Cells 10 /HPF 12/26/18225 Urine Amorphous Sediment SMALL H 12/26/18225 Urine Mucus (Auto) SMALL 12/26/18225 FAYE MARIE CNM Dec 26, 2018 05:22
== END 2018-12-26 04:30 | disposition home or self-care (01) ==
LOC: M LDO 01:54
PROVIDERS: ATTEND Advanced Practice Midwife
DX: O23.42 Unspecified infection of urinary tract in pregnancy, second trimester (principal); Z3A.20 20 weeks gestation of pregnancy; O98.412 Viral hepatitis complicating pregnancy, second trimester; O99.342 Other mental disorders complicating pregnancy, second trimester; O99.512 Diseases of the respiratory system complicating pregnancy, second trimester; O99.322 Drug use complicating pregnancy, second trimester
CPT/HCPCS: 81001; 87088; 87186; G0378; G0463

== ENCOUNTER → 2019-01-04 | Outpatient (CLI) | payer BC, MEDICAID ==
[~2019-01-04] MED LIST changes: +KEFL500C17 PO
[2019-01-04 20:15] LABS: CHLAMYDIA DNA AMPLIFICATION NEGATIVE (NEGATIVE); GC DNA AMPLIFICATION NEGATIVE (NEGATIVE)
[2019-01-04 20:22] LABS: BASO # 0.1 10^3/uL (0.0-0.2); BASO % 0.5 % (0.0-1.0); EOS # 0.1 10^3/uL (0.0-0.50); HEMATOCRIT 30.9 % (36.0-47.0); HEMOGLOBIN 9.9 g/dl (12.0-15.5); LYMPH # 1.8 10^3/uL (1.5-6.5); LYMPH % 18.8 % (24.0-44.0); MEAN CORPUSCULAR HEMOGLOBIN 28.9 pg (27.0-33.0); MEAN CORPUSCULAR VOLUME 90.1 fl (80.0-96.0); MONO # 0.5 10^3/uL (0.0-0.8); MONO % 4.9 % (0.0-5.0); NEUTROPHILS # 7.3 10^3/uL (1.8-7.7); NEUTROPHILS % 74.3 % (36.0-66.0); PLATELET COUNT, AUTOMATED 202 10^3/uL (150-450); RED BLOOD COUNT 3.43 10^6/uL (4.00-5.40); WHITE BLOOD COUNT 9.8 10^3/uL (4.0-10.0)
[2019-01-05 12:46] LABS: RUBELLA IgG QUALITATIVE IMMUNE (IMMUNE)
[2019-01-05 12:47] LABS: HEPATITIS C VIRUS ABY INDEX > 11.0 INDEX (<0.8)
[2019-01-05 14:58] LABS: HIV 1&2 SCREEN CENTAUR NEGATIVE (NEGATIVE)
== END ==
LOC: M SMT 14:00
PROVIDERS: ATTEND Obstetrics & Gynecology
DX: Z34.81 Encounter for supervision of other normal pregnancy, first trimester (principal); Z3A.01 Less than 8 weeks gestation of pregnancy

== ENCOUNTER → 2019-01-29 | Outpatient (REF) | payer BC, MEDICAID | LOC: M LAB REF 19:21 | PROVIDERS: ATTEND Physician Assistant | DX: R30.0 Dysuria (principal) ==

== ENCOUNTER → 2019-02-21 | Outpatient (CLI) | payer BC, MEDICAID ==
--- NOTE | 2019-02-21 15:14 | REP ---
OB ULTRASOUND: Real-time sonographic evaluation of the gravid uterus is performed. There is a single living intrauterine gestation, the estimated gestational age 28 weeks 3 days, EDC 05/13/2019. Today's measurements indicate appropriate growth. BPD 72 mm = 28 weeks 5 days, 58th percentile HC 270 mm = 29 weeks 3 days, 73rd percentile AC 250 mm = 29 weeks 1 day, 66th percentile FL 53 mm = 28 weeks 0 days, 41st percentile HC/AC ratio 1.08, within normal range. Estimated weight 1286 grams, 51st percentile. Cervix is closed and measures 4.4 cm in length. heart rate 149 beats per minute. Amniotic fluid within normal limits, YUKI 17.3, within normal range of 9.3 to 22.9. SEEN/GROSSLY UNREMARKABLE Lateral ventricles yes Posterior fossa yes Upper lip yes Four-chamber heart yes LVOT yes RVOT yes Stomach yes Cord insertion yes Three vessel cord yes Kidneys yes Bladder yes Spine yes position: Vertex. Placenta: Anterior and grade 1 with no previa or abruption. Electronically Signed by Jean Jefferson MD 02/22/2019 04:17 P
== END ==
LOC: M RAD 10:03
PROVIDERS: ATTEND Obstetrics & Gynecology
DX: Z34.82 Encounter for supervision of other normal pregnancy, second trimester (principal); Z3A.28 28 weeks gestation of pregnancy

== ENCOUNTER → 2019-04-02 | Outpatient (REF) | payer BC, MEDICAID ==
[~2019-04-02] MED LIST changes: -DULO1CAP3; +DULO1CAP6
== END ==
LOC: M LAB REF 17:17
PROVIDERS: ATTEND Obstetrics & Gynecology
DX: Z34.82 Encounter for supervision of other normal pregnancy, second trimester (principal)

== ENCOUNTER → 2019-04-19 | Outpatient (REF) | payer BC, MEDICAID | LOC: M LAB REF 12:58 | PROVIDERS: ATTEND Advanced Practice Midwife | DX: Z34.83 Encounter for supervision of other normal pregnancy, third trimester (principal) ==

== ENCOUNTER 2019-05-06 14:09 | Inpatient (IN) | payer BC, MEDICAID ==
[2019-05-06] VITALS (7 sets, daily range): BP systolic 108–128; BP diastolic 53–86
[~2019-05-06] VITALS: Ht 154.9 cm; Wt 70.0 kg
[2019-05-06] MEDS ORDERED: LR 1,000 ML IV SCH ×2 (14:10→16:34)
[2019-05-06] MEDS ORDERED: LACTATED RINGER'S 1000 ML IV STA (14:10)
[2019-05-06 15:04] LABS: HEMATOCRIT 26.6 % (36.0-47.0); HEMOGLOBIN 8.2 g/dl (12.0-15.5); MEAN CORPUSCULAR HEMOGLOBIN 23.7 pg (27.0-33.0); MEAN CORPUSCULAR HGB CONC 30.8 g/dl (32.0-36.5); MEAN CORPUSCULAR VOLUME 76.9 fl (80.0-96.0); RED BLOOD COUNT 3.46 10^6/uL (4.00-5.40)
[2019-05-06 15:15] LABS: ALBUMIN 2.5 GM/DL (3.2-5.2); ALT/SGPT 158 U/L (12-78); BILIRUBIN,TOTAL 1.2 MG/DL (0.2-1.0); BLOOD UREA NITROGEN 8 MG/DL (7-18); CALCIUM LEVEL 8.5 MG/DL (8.5-10.1); CARBON DIOXIDE LEVEL 22 MEQ/L (21-32); CHLORIDE LEVEL 107 MEQ/L (98-107); CREATININE FOR GFR 0.72 MG/DL (0.55-1.30); GLOMERULAR FILTRATION RATE > 60.0 (>60); GLUCOSE, FASTING 88 MG/DL (70-100); POTASSIUM SERUM 3.8 MEQ/L (3.5-5.1); SODIUM LEVEL 137 MEQ/L (136-145); TOTAL PROTEIN 6.2 GM/DL (6.4-8.2)
[2019-05-06 15:29] LABS: AMPHETAMINES URINE REFLEX NEGATIVE (NEGATIVE); BARBITURATES URINE REFLEX NEGATIVE (NEGATIVE); BENZODIAZEPINES URINE REFLEX NEGATIVE (NEGATIVE); CANNABINOIDS URINE REFLEX NEGATIVE (NEGATIVE); COCAINE METABOLITE URINE REFLE NEGATIVE (NEGATIVE); METHADONE URINE REFLEX NEGATIVE (NEGATIVE); PHENCYCLIDINE URINE REFLEX NEGATIVE (NEGATIVE)
[2019-05-06 15:31] LABS: OPIATES URINE REFLEX PENDING CONFIRMATION (NEGATIVE)
[2019-05-06 15:36] LABS: PLATELET COUNT, AUTOMATED 94 10^3/uL (150-450)
[2019-05-06] MEDS ORDERED: TERBUTALINE SULFATE 1 MG/ML VIAL (J3105) As Ordered ONE (16:17)
[2019-05-06] MEDS ORDERED: OXYTOCIN 30 UNITS IN 0.9% NaCl 500ML IV BAG (J2590) As Ordered ONE (16:24)
[2019-05-06] MEDS ORDERED: OXYTOCIN DRIP 30 UNITS in APPROPRIATE DILUENT 1 EA IV SCH (16:34)
[2019-05-06] MEDS ORDERED: IBUPROFEN 600 MG TAB PO PRN (16:45)
[2019-05-06] MEDS ORDERED: ACETAMINOPHEN TAB 650MG DOSE (2X325MG) PO PRN (16:45)
[2019-05-06] MEDS ORDERED: DIBUCAINE 1% OINTMENT 30GM TOP PRN (16:45)
[2019-05-06] MEDS ORDERED: PROMETHAZINE 25 MG TAB PO PRN (16:45)
[2019-05-06] MEDS ORDERED: MEASLES,MUMPS,RUBELLA VACCINE INJ (MMR-II) (90707) SC SCH (16:45)
[2019-05-06] MEDS ORDERED: RHOGAM 300 MCG (1500 IU) INJ (J2790) IM SCH (16:45)
[2019-05-06] MEDS ORDERED: DOCUSATE SODIUM 100 MG CAP PO PRN (16:45)
[2019-05-06] MEDS ORDERED: ONDANSETRON 4MG/2ML VIAL (J2405) IV PRN (16:45)
[2019-05-06] MEDS ORDERED: SLF 3 ML SYR IV PRN (18:00)
[2019-05-06] MEDS: IBUPROFEN 800 MG TAB PO PRN (19:27)
[2019-05-06] MEDS: SLF 3 ML SYR IV SCH (22:00)
[2019-05-06] MEDS: ACETAMINOPHEN 500 MG TAB PO PRN (22:03)
[2019-05-07] MEDS: IBUPROFEN 800 MG TAB PO PRN (03:13)
[2019-05-07] MEDS: ACETAMINOPHEN 500 MG TAB PO PRN (05:24)
[2019-05-07] MEDS: SLF 3 ML SYR IV SCH (05:25)
[2019-05-07 05:55] VITALS: BP 103/55
[2019-05-07] MEDS ORDERED: PRENATAL VITAMINS CHEWABLE TABLET PO SCH (09:00)
--- NOTE | 2019-05-07 09:45 | IPNPDOC ---
Text Note Date of Service The patient was seen on 05/07/19. NOTE Day 1 s/p ; uncomplicated S: pain well controlled, lochia and bleeding decreasing, voiding spontaneously, ambulating without assistance, tolerating regular diet. Formula feeding. O: vitals stable Heart: RRR, no murmurs Lungs: CTA bilaterally Abd: U-2 and fundus firm Ext: no edema, nontender, negative Clayton's bilaterally A/P: 23 yo G3 now P2. day 1 s/p . Hemodynamically stable, afebrile, good pain control. Recovering well. -Routine / postoperative care and advancement. -Anticipate discharge tomorrow -CPS consult VS,Jaycob, I+O VS, Jaycob I+O Laboratory Tests 05/06/19 14:35 Red Blood Count 3.46 L, Mean Corpuscular Volume 76.9 L, Mean Corpuscular Hemoglobin 23.7 L, Mean Corpuscular Hemoglobin Concent 30.8 L, Red Cell Distribution Width 17.4 H, Calcium Level 8.5, Aspartate Amino Transf (AST/SGOT) 374 H, Alanine Aminotransferase (ALT/SGPT) 158 H, Alkaline Phosphatase 380 H, Total Bilirubin 1.2 H, Total Protein 6.2 L, Albumin 2.5 L Vital Signs Date Time Temp Pulse Resp B/P (MAP) Pulse Ox O2 Delivery O2 Flow Rate FiO2 05/07/19 05:55 97.8 75 20 103/55 (71) I&O- Last 24 Hours up to 6 AM 05/07/19 06:00 Intake Total 2300 ml Output Total 800 ml Balance 1500 ml GME ATTESTATION GME ATTESTATION My faculty preceptor for this patient encounter was physically present during the encounter and was fully available. All aspects of the patient interview, examination, medical decision making process, and medical care plan development were reviewed and approved by the faculty preceptor. The faculty preceptor is aware and concurs with the plan as stated in the body of this note and will attest to such by his/her cosignature. VALERIE CHRISTIANSON DO May 07, 2019 09:45
[2019-05-09 14:31] LABS: HEPATITIS C QUANTITATION HCV Not Detected IU/mL (.)
[2019-05-10 14:29] LABS: Codeine Positive (.); GC Codeine 923 ng/mL (Cutoff=200); GC Morphine >10000 ng/mL (Cutoff=200); Morphine Positive (.); Opiates Positive (.)
== END 2019-05-07 10:10 | disposition home or self-care (01) | DRG 560 ==
LOC: M LDI 14:09 → M OBS 18:28
PROVIDERS: ADMIT Obstetrics & Gynecology; ATTEND Obstetrics & Gynecology
PROC: 10E0XZZ Delivery of Products of Conception, External Approach (ICD-10-PCS; principal; 2019-05-06)
PROC: 10907ZC Drainage of Amniotic Fluid, Therapeutic from Products of Conception, Via Natural or Artificial Opening (ICD-10-PCS; 2019-05-06)
DX: O98.42 Viral hepatitis complicating childbirth (principal); B19.20 Unspecified viral hepatitis C without hepatic coma; Z3A.39 39 weeks gestation of pregnancy; Z37.0 Single live birth; O77.0 Labor and delivery complicated by meconium in amniotic fluid; Z91.19 Patient's noncompliance with other medical treatment and regimen; O99.324 Drug use complicating childbirth; F11.20 Opioid dependence, uncomplicated

== ENCOUNTER → 2019-06-23 | Outpatient (REF) | payer BC, MEDICAID ==
[2019-06-23 21:49] LABS: APPEARANCE, URINE TURBID (CLEAR); BACTERIA, URINE AUTO 3+ (NEGATIVE); BILIRUBIN, URINE AUTO NEGATIVE (NEGATIVE); BLOOD, URINE BLOOD 2+ (NEGATIVE); COLOR, URINE YELLOW (YELLOW); GLUCOSE, URINE (UA) AUTO NEGATIVE (NEGATIVE); KETONE, URINE AUTO NEGATIVE (NEGATIVE); LEUKOCYTE ESTERASE, URINE AUTO 2+ (NEGATIVE); NITRITE, URINE AUTO NEGATIVE (NEGATIVE); PROTEIN, URINE AUTO 2+ mg/dL (NEGATIVE); RBC, URINE AUTO 11 /HPF (0-3); SQUAMOUS EPITHELIAL CELL UR AU 0 /HPF (0-6); UROBILINOGEN, URINE AUTO 0.2 mg/dL (0.0-2.0); WBC, URINE AUTO TNTC /HPF (0-3)
== END ==
LOC: M LAB REF 08:36
PROVIDERS: ATTEND Physician Assistant Medical
DX: N39.0 Urinary tract infection, site not specified (principal)

== ENCOUNTER → 2019-07-14 | Outpatient (REF) | payer BC, MEDICAID ==
[2019-07-14 21:29] LABS: AMORPHOUS SEDIMENT SMALL (NEGATIVE); APPEARANCE, URINE CLOUDY (CLEAR); BACTERIA, URINE AUTO NEGATIVE (NEGATIVE); BILIRUBIN, URINE AUTO NEGATIVE (NEGATIVE); BLOOD, URINE BLOOD 1+ (NEGATIVE); CALCIUM OXALATE CRYSTALS SMALL; COLOR, URINE AMBER (YELLOW); GLUCOSE, URINE (UA) AUTO NEGATIVE (NEGATIVE); KETONE, URINE AUTO TRACE mg/dL (NEGATIVE); LEUKOCYTE ESTERASE, URINE AUTO 3+ (NEGATIVE); MUCUS, URINE LARGE (NEGATIVE); NITRITE, URINE AUTO NEGATIVE (NEGATIVE); PROTEIN, URINE AUTO 1+ mg/dL (NEGATIVE); RBC, URINE AUTO 21 /HPF (0-3); SPECIFIC GRAVITY URINE AUTO 1.024 (1.002-1.035); SQUAMOUS EPITHELIAL CELL UR AU 4 /HPF (0-6); UROBILINOGEN, URINE AUTO 0.2 mg/dL (0.0-2.0); WBC, URINE AUTO 118 /HPF (0-3)
== END ==
LOC: M LAB REF 11:03
PROVIDERS: ATTEND Nurse Practitioner Family
DX: R30.0 Dysuria (principal)

== ENCOUNTER → 2019-07-21 | Outpatient (REF) | payer BC, MEDICAID | LOC: M LAB REF 12:42 | PROVIDERS: ATTEND Nurse Practitioner Family | DX: R19.7 Diarrhea, unspecified (principal) ==

== ENCOUNTER 2020-11-05 13:32 | Inpatient (IN) | payer BC, MEDICAID ==
[~2020-11-05] VITALS: Ht 154.9 cm; Wt 66.0 kg
[2020-11-05] VITALS (13 sets, daily range): BP systolic 109–126; BP diastolic 53–79
[2020-11-05] MEDS ORDERED: OXYTOCIN 30 UNITS IN 0.9% NaCl 500ML IV BAG (J2590) As Ordered ONE (13:38)
--- OUTSIDE RECORDS SUMMARY | 2020-11-05 13:40 | CCD ---
Author Author [facility] Organization [facility] Address Unknown Phone Unavailable Care Team Providers Care Armed Security Professional Name Role Phone Samantha Yin Unavailable Re-disclosure Warning The records that you are about to access may contain information from federally-assisted alcohol or drug abuse programs. If such information is present, then the following federally mandated warning applies: This information has been disclosed to you from records protected by federal confidentiality rules (42 CFR part 2). The federal rules prohibit you from making any further disclosure of this information unless further disclosure is expressly permitted by the written consent of the person to whom it pertains or as otherwise permitted by 42 CFR part 2. A general authorization for the release of medical or other information is NOT sufficient for this purpose. The Federal rules restrict any use of the information to criminally investigate or prosecute any alcohol or drug abuse patient.The records that you are about to access may contain highly sensitive health information, the redisclosure of which is protected by Article 27-F of the [facility] Public Health law. If you continue you may have access to information: Regarding HIV / AIDS; Provided by facilities licensed or operated by the [facility] Office of Mental Health; or Provided by the [facility] Office for People With Developmental Disabilities. If such information is present, then the following [facility] mandated warning applies: This information has been disclosed to you from confidential records which are protected by state law. State law prohibits you from making any further disclosure of this information without the specific written consent of the person to whom it pertains, or as otherwise permitted by law. Any unauthorized further disclosure in violation of state law may result in a fine or [place] health care facility sentence or both. A general authorization for the release of medical or other information is NOT sufficient authorization for further disc losure. Family History Family Member Name Family Member Gender Family Member Status Date o f Status Description Data Source(s) Unknown Unknown Problem [facility] ([facility]) Unknown Male Problem [facility] ([facility]) Encounters Encounter Providers Location Date Indications Data Source(s ) [id number]"Psychotherapy Attender: Samantha Yin [facility] 03/17/2020 09:00:00 AM EDT - 03/17/2020 09:00:00 AM EDT [facility] ([facility]) Attender: Samantha Yin 03/17/2020 12:00:00 AM EDT [facility] ([facility]) [facility] [address] [place] [address] 11/12/2019 12:00:00 AM EST eCW1 ([facility]) Insurance Providers Payer name Policy type / Coverage type Policy ID Covered democrat ID Covered democrat's relationship to nettles Policy Nettles Plan Information MARYLU [id number] SP [id number] BCBS FEDERAL EMPLOYEE PROGRAM [id number] MO2 [id number] MEDICAID [id number] SP [id number] [place] [id number] JOSEY [id number] MEDICAID [id number] S [id number] [place] [id number] JOSEY [id number] ANSI-Medicaid [id number] ANSI-Commercial [id number] BCBS FEDERAL EMPLOYEE PROGRAM [id number] MO2 [id number] BCBS Federal Plan Commercial [id number] Family Dependent [id number] [place] [id number] CHILD [id number] MEDICAID [id number] S [id number] BCBS FEDERAL EMPLOYEE PROGRAM [id number] MO2 [id number] [place] [id number] CHILD [id number] MEDICAID [id number] S [id number] [place] [id number] CHILD [id number] BCBS FEDERAL EMPLOYEE PROGRAM [id number] MO2 [id number] [place] 306/[id number] MO2 [id number] ANSI-Medicaid [id number] ANSI-Commercial [id number] MEDICAID M [id number] S [id number] ANSI-Medicaid [id number] ANSI-Commercial [id number] [facility] FEDERAL EMPLOYEE PROGRAM [id number] MO2 [id number] MEDICAID [id number] S [id number] [place] B [id number] C [id number] ANSI-Medicaid [id number] ANSI-Commercial [id number] MEDICAID [id number] SP [id number] [place]LL[place] BCBS FEDERAL [id number] MO2 [id number] MEDICAID [id number] SP [id number] [place] B [id number] C [id number] [place] Part B [id number] Self [id number] Fed Plan Commercial [id number] Family Dependent [id number] [place] [id number] Self [id number] BS Fed Plan Commercial [id number] Family Dependent [id number] [place] Part B [id number] Self [id number] BS Fed Plan Commercial [id number] Family Dependent [id number] [place] P[place] 302/307 [id number] MO2 [id number] EXCELLUS BCBS B [id number] C [id number] BC [place] B [id number] C [id number] SELF PAY UNAVAILABLE UNAVAILA BLE [facility] [facility] [place] [id number] MO2 [id number] [employer] [id number] SP [id number] [facility] [facility] [place] S [id number] S [id number] [employer] P [id number] S [id number] [facility] [id number] 19 [id number] [facility] O/P [id number] Surgeries/Procedures Procedure Description Date Indications Data Source(s) [id number]"Psychotherapy 0 12:00:00 AM EDT - 03/17/2020 12:00:00 AM EDT [facility] ([facility]) [id number]"Psychotherapy 03/17/2020 12:00:00 AM EDT [facility] ([facility]) Social History Code Duration Value Status Description Data Source(s ) Smoking 03/17/2020 12:00:00 AM EDT Unknown if ever smoked comp leted Unknown if ever smoked [facility] ([facility])
--- NOTE | 2020-11-05 13:54 | HPEPDOC ---
Obstetrical History & Physical General Date of Admission Nov 05, 2020 at 13:32 Primary Care Physician: FAYE MARIE CNM History of Present Illness Kandy is a 25-year-old female who is now a who presented to L&D via ambulance after delivering what appears to be a full term . She has had no care. Her history is significant for heroin use, which she reports having used this morning at 0700. She delivered as EMS presented to her home and the placenta delivered spontaneously upon arrival to the hospital in the ambulance. She reports that she does not have custody of her other children that her aunt has custody of them. Chief Complaint: Other (vaginal delivery) Information Provided By: Patient Age: 25 : 4 Term: 3 Pre-term: 0 Abortions: 1 Livin Care Care: None Antepartum Course Diagnos(e)s heroin addiction no care Height (inches): 61 Admission Weight (lbs.): 145 Past Medical History Past Obstetrical History : Date of Delivery: Oct 20, 2017 Gestation: 39.6 Type of Delivery: Spontaneous Vaginal Del. Sex of : Female (weight: 7 lbs 3 oz) Complications: No [employer] History: Spontaneous Past Medical History Medical History Hepatitis C positive Asthma Depression/anxiety Surgical History: Denies/None Family History Significant Family History: Hypertension (father) Social History Marital Status: Single Family situation: Spouse/partner home Psychosocial History: Anxiety, Depression * Smoker: non-smoker Alcohol: Denies Drugs: heroin, IV drug use Allergies Coded Allergies: No Known Allergies (Unverified , 12/11/16) Medications No Active Prescriptions or Reported Meds Physical Examination Physical Examination GENERAL: Alert and oriented times three. BREAST: . ABDOMEN: Gravid and non-tender to touch. Uterine: Uterus above umbilicus and to left. Uterine sweep done with multiple clots extracted. LUNGS: Clear to auscultation (CTA). Regular rate with no use of accessory muscles. EXTREMITIES: 2-3+ pitting edema of feet, ankles, and legs. No clonus. Deep tendon reflexes (DTRs) + 2. SKIN: multiple track sykes and bruises from IV drug use noted over both arms. No cellulitis noted. Assessment/Plan Assessment full term vaginal delivery at home with delivery of placenta in ambulance GBS unknown hemorrhage Plan Admit to L&D Diet: regular. Group B Streptococcus (GBS) unknown. Labs and intravenous (IV) per unit protocol. panel to be drawn. Urine drug screen ordered. IM Pitocin given and IM Methergine given. Neonatology present to evaluate . CPS notified. FAYE MARIE CNM Nov 05, 2020 13:54
--- NOTE | 2020-11-05 13:54 | DNPDOC ---
[facility] Delivery Note Delivery Note DATE OF DELIVERY: 11/05/20 at 1252 PREDELIVERY DIAGNOSIS: Unknown gestation but baby appears to be full term. POST DELIVERY DIAGNOSIS: Delivered. PROCEDURE: Spontaneous vaginal delivery. PARTS PICKER: Faye Siddiqui CNM, BJ ANESTHESIA: none. ESTIMATED BLOOD LOSS: 1000 mL. FINDINGS: 6 pounds 1 ounce; 2760 grams; female infant, Score 8/9, nuchal cord times x2 loose, delivered at home with EMS, no care, heroin addiction with use today. DELIVERY SUMMARY: Kandy is a 25-year-old female who is a that presents via ambulance that had no care and arrived via EMS. EMS was present in home when patient was . They APGARed the baby at 8/9 and reported a nuchal cord x2 loose. She reports she used heroin at 0700. The EMS reports that she ruptured with delivery and the fluid was clear. The baby delivered cephalic presentation and had a spontaneous cry with delivery. The placenta delivered in the ambulance upon arrival at 1300. When she arrived to L&D her uterus was palpated and a manual done and large clots expressed from uterus. Uterine ma ssage, IM Pitocin and IM Methergine given (due to inability to start an IV due to damage of veins) for uterine hemostasis. EBL 1000 cc. Inspection done of cervix, vagina, and perineum and found to have bilateral periurethral abrasions that were not repaired. She plans to formula feed . All counts of instruments and sponges are correct. Mother and baby in stable condition. FAYE SIDDIQUI CNM Nov 05, 2020 13:54
[2020-11-05] MEDS ORDERED: METHYLERGONOVINE MALEATE 0.2 MG/ML VIAL (J2210) IM ONE (13:55)
[2020-11-05] MEDS ORDERED: OXYTOCIN INJ 10 UNITS/ML VIAL (J2590) IM ONE (13:55)
[2020-11-05] MEDS ORDERED: OXYTOCIN DRIP IV SCH (14:25)
[2020-11-05] MEDS ORDERED: ACETAMINOPHEN 500 MG TAB PO PRN (14:50)
[2020-11-05] MEDS ORDERED: DOCUSATE SODIUM 100MG CAPSULE PO PRN (14:50)
[2020-11-05] MEDS ORDERED: ANUSOL HC CREAM 30GM TOP PRN (14:50)
[2020-11-05] MEDS ORDERED: DIBUCAINE 1% OINTMENT 30GM TOP PRN (14:50)
[2020-11-05] MEDS ORDERED: IBUPROFEN 600MG TAB PO PRN (14:50)
[2020-11-05] MEDS ORDERED: MEASLES,MUMPS,RUBELLA VACCINE INJ (MMR-II) (90707) SC SCH (14:50)
[2020-11-05] MEDS ORDERED: IBUPROFEN 800 MG TAB PO PRN (14:50)
[2020-11-05] MEDS ORDERED: ACETAMINOPHEN TAB 650MG DOSE (2X325MG) PO PRN (14:50)
[2020-11-05] MEDS ORDERED: RHOGAM 300 MCG (1500 IU) INJ (J2790) IM SCH (14:50)
[2020-11-05] MEDS ORDERED: METHYLERGONOVINE MALEATE 0.2 MG TAB PO PRN (14:50)
[2020-11-05 15:22] LABS: BASO # 0.1 10^3/uL (0.0-0.2); BASO % 0.4 % (0.0-1.0); EOS % 0.1 % (0.0-3.0); LYMPH # 1.3 10^3/uL (1.5-5.0); LYMPH % 10.5 % (24.0-44.0); MEAN CORPUSCULAR HEMOGLOBIN 19.3 pg (27.0-33.0); MEAN CORPUSCULAR HGB CONC 27.9 g/dl (32.0-36.5); MEAN CORPUSCULAR VOLUME 69.3 fl (80.0-96.0); MONO # 0.5 10^3/uL (0.0-0.8); MONO % 3.7 % (2.0-8.0); NEUTROPHILS # 10.4 10^3/uL (1.5-8.5); NEUTROPHILS % 84.6 % (36.0-66.0); PLATELET COUNT, AUTOMATED 144 10^3/uL (150-450); WHITE BLOOD COUNT 12.3 10^3/uL (4.0-10.0)
[2020-11-05 15:26] LABS: HEMOGLOBIN 5.8 g/dl (12.0-15.5)
[2020-11-05 15:27] LABS: HEMATOCRIT 20.8 % (36.0-47.0)
[2020-11-05 18:18] LABS: HIV 1&2 SCREEN CENTAUR NEGATIVE (NEGATIVE)
[2020-11-05 18:24] LABS: HEPATITIS C VIRUS ABY INDEX > 11.0 INDEX (<0.8)
--- NOTE | 2020-11-05 19:29 | IPNPDOC ---
Progress Note Date of Service: Nov 05, 2020 Progress Note SUBJECT: Kandy blackwell OBJECTIVE: VITAL SIGNS: Within normal limits, afebrile. Alert and oriented times three. Labs: see below. ASSESSMENT: anemia PLAN: 1. Patient consented to get blood. 2 units of PRBC ordered. Reviewed risks, benefits, and alternatives. Patient accepts blood transfusion. VS, I&O, 24H, Fishbone Vital Signs/I&O Vital Signs Date Time Temp Pulse Resp B/P (MAP) Pulse Ox O2 Delivery O2 Flow Rate FiO2 11/05/20 18:00 98.2 58 18 116/56 (76) 11/05/20 15:46 98 Laboratory Data 24H LABS Laboratory Tests 2 11/05/20 14:46: Immature Granulocyte % (Auto) 0.7, Neutrophils (%) (Auto) 84.6H, Lymphocytes (%) (Auto) 10.5L, Monocytes (%) (Auto) 3.7, Eosinophils (%) (Auto) 0.1, Basophils (%) (Auto) 0.4, Neutrophils # (Auto) 10.4H, Lymphocytes # (Auto) 1.3L, Monocytes # (Auto) 0.5, Eosinophils # (Auto) 0.0, Basophils # (Auto) 0.1, Nucleated Red Blood Cells % (auto) 0.2H, Syphilis Serology NONREACTIVE, Maternal Hepatitis B Surface Ag NEGATIVE, Hepatitis C Antibody Index > 11.0H, HIV Antigen/Antibody Combo Qual NEGATIVE, Rubella Immunity Screen SUSCEPTIBLE 11/05/20 18:45: Serology Scanned Report Hepatitis B Testing CBC/BMP Laboratory Tests 11/05/20 14:46 FAYE MARIE CNM Nov 05, 2020 19:29
[2020-11-05 21:41] LABS: AMPHETAMINES URINE REFLEX NEGATIVE (NEGATIVE); BARBITURATES URINE REFLEX NEGATIVE (NEGATIVE); BENZODIAZEPINES URINE REFLEX NEGATIVE (NEGATIVE); CANNABINOIDS URINE REFLEX NEGATIVE (NEGATIVE); COCAINE METABOLITE URINE REFLE NEGATIVE (NEGATIVE); METHADONE URINE REFLEX NEGATIVE (NEGATIVE); PHENCYCLIDINE URINE REFLEX NEGATIVE (NEGATIVE)
[2020-11-05 21:43] LABS: OPIATES URINE REFLEX PENDING CONFIRMATION (NEGATIVE)
[2020-11-06 00:42] VITALS: BP 115/59
[2020-11-06 02:10] VITALS: BP 102/54
[2020-11-06 05:32] VITALS: BP 101/58
[2020-11-06 06:50] LABS: HEMATOCRIT 25.5 % (36.0-47.0); HEMOGLOBIN 7.5 g/dl (12.0-15.5); MEAN CORPUSCULAR HEMOGLOBIN 22.3 pg (27.0-33.0); MEAN CORPUSCULAR HGB CONC 29.4 g/dl (32.0-36.5); MEAN CORPUSCULAR VOLUME 75.9 fl (80.0-96.0); PLATELET COUNT, AUTOMATED 118 10^3/uL (150-450); RED BLOOD COUNT 3.36 10^6/uL (4.00-5.40); WHITE BLOOD COUNT 9.6 10^3/uL (4.0-10.0)
--- NOTE | 2020-11-06 07:39 | IPNPDOC ---
Progress Note Date of Service: Nov 06, 2020 Day#: 1 Progress Note SUBJECT: Kandy is a 25-year-old female who delivered at home with the assistance of EMS. She is a current IV drug user and last used heroin at 0700 yesterday. She had no care. She had a hemorrhage when examined in labor and delivery of 1000 cc. Due to severe anemia she received 2 units of PRBCs even though she was not symptomatic. CPS has been involved and the baby is currently in NICU. She is voiding and ambulating without any issues. Her bleeding has been minimal. Denies any current discomfort. OBJECTIVE: VITAL SIGNS: Within normal limits, afebrile. Alert and oriented times three. Breath sounds clear to auscultation. Abdomen: Fundus firm at U-1. Soft, NTTP. Minimal lochia. ASSESSMENT: day 1 PLAN: 1. Consider discharge to home today. 2. Patient offered to be set up for inpatient and outpatient opiate treatment. Patient declined. She states she will go to [place] for outpatient treatment for methadone. 3. Patient offered contraception options before she leaves the hospital and she refused. 4. Encouraged to make an appointment in our clinic so we can see her . 5. discharge education done with patient. VS, I&O, 24H, [place] Vital Signs/I&O Vital Signs Date Time Temp Pulse Resp B/P (MAP) Pulse Ox O2 Delivery O2 Flow Rate FiO2 11/06/20 05:32 98.4 58 16 101/58 (72) 100 Room Air I&O- Last 24 Hours up to 6 AM 11/06/20 06:00 Intake Total 703 ml Output Total 1450 ml Balance -747 ml Laboratory Data 24H LABS Laboratory Tests 2 11/05/20 14:46: Immature Granulocyte % (Auto) 0.7, Neutrophils (%) (Auto) 84.6H, Lymphocytes (%) (Auto) 10.5L, Monocytes (%) (Auto) 3.7, Eosinophils (%) (Auto) 0.1, Basophils (%) (Auto) 0.4, Neutrophils # (Auto) 10.4H, Lymphocytes # (Auto) 1.3L, Monocytes # (Auto) 0.5, Eosinophils # (Auto) 0.0, Basophils # (Auto) 0.1, Nucleated Red Blood Cells % (auto) 0.2H, Syphilis Serology NONREACTIVE, Maternal Hepatitis B Surface Ag NEGATIVE, Hepatitis C Antibody Index > 11.0H, HIV Antigen/Antibody Combo Qual NEGATIVE, Rubella Immunity Screen SUSCEPTIBLE 11/05/20 18:45: Serology Scanned Report Hepatitis B Testing 11/05/20 20:50: Urine Opiates Screen PENDING CONFIRMATIONH, Urine Methadone Screen NEGATIVE, Urine Barbiturates Screen NEGATIVE, Urine Phencyclidine Screen NEGATIVE, Urine Amphetamines Screen NEGATIVE, Urine Benzodiazepines Screen NEGATIVE, Urine Cocaine Metabolite Screen NEGATIVE, Urine Cannabinoids Screen NEGATIVE 11/06/20 06:21: Nucleated Red Blood Cells % (auto) 0.2H CBC/BMP Laboratory Tests 11/05/20 14:46 11/06/20 06:21 FAYE MARIE CNM Nov 06, 2020 07:39
[2020-11-06] MEDS ORDERED: PRENATAL VITAMINS CHEWABLE TABLET PO SCH (09:00)
[2020-11-06 10:00] VITALS: BP 114/64
[2020-11-10 09:09] LABS: Codeine Positive (.); GC Codeine 1281 ng/mL (Cutoff=200); GC Morphine >15000 ng/mL (Cutoff=200); Morphine Positive (.); Opiates Positive (.)
== END 2020-11-06 13:07 | disposition left against medical advice (07) | DRG 561 ==
LOC: M LDI 13:32 → M OBS 15:22
PROVIDERS: ADMIT Advanced Practice Midwife; ATTEND Advanced Practice Midwife
PROC: 30233N1 Transfusion of Nonautologous Red Blood Cells into Peripheral Vein, Percutaneous Approach (ICD-10-PCS; principal; 2020-11-05)
DX: Z39.0 Encounter for care and examination of mother immediately after delivery (principal); O72.0 Third-stage hemorrhage

== ENCOUNTER 2021-12-30 05:06 | Inpatient (IN) | payer OTHER, MEDICAID ==
[~2021-12-30] VITALS: Ht 154.9 cm; Wt 67.9 kg
[2021-12-30] VITALS (22 sets, daily range): BP systolic 99–176; BP diastolic 52–90
[2021-12-30] MEDS ORDERED: PENICILLIN G POTASSIUM IV 5 MU in D5W MINI-BAG PLUS 100 ML IV ONE (06:25)
[2021-12-30] MEDS ORDERED: OXYTOCIN DRIP 30 UNITS in IV 1 EA IV PRN (06:30)
[2021-12-30] MEDS ORDERED: LACTATED RINGER'S 1000 ML IV STA (06:30)
[2021-12-30] MEDS ORDERED: PENICILLIN G POTASSIUM IV 5 MU in D5W MINI-BAG PLUS 100 ML IV STA (06:30)
[2021-12-30] MEDS ORDERED: CARBOPROST TROMETHAMINE 250 MCG/ML AMP IM PRN (06:30)
[2021-12-30] MEDS ORDERED: LIDOCAINE 1% MDV 20ML VIAL INFIL PRN (06:30)
[2021-12-30] MEDS ORDERED: TRANEXAMIC ACID INJection 1,000 MG in NS 100 ML IV PRN (06:30)
[2021-12-30] MEDS ORDERED: LR 1,000 ML IV SCH ×2 (06:30→11:55)
[2021-12-30 06:31] LABS: BASO # 0.1 10^3/uL (0.0-0.2); BASO % 0.6 % (0.0-1.0); EOS # 0.1 10^3/uL (0.0-0.5); EOS % 0.6 % (0.0-3.0); HEMATOCRIT 23.1 % (36.0-47.0); LYMPH # 1.3 10^3/uL (1.5-5.0); LYMPH % 15.6 % (24.0-44.0); MEAN CORPUSCULAR HEMOGLOBIN 19.6 pg (27.0-33.0); MEAN CORPUSCULAR HGB CONC 28.6 g/dl (32.0-36.5); MEAN CORPUSCULAR VOLUME 68.5 fl (80.0-96.0); MONO # 0.7 10^3/uL (0.0-0.8); MONO % 8.2 % (2.0-8.0); NEUTROPHILS # 6.1 10^3/uL (1.5-8.5); NEUTROPHILS % 74.1 % (36.0-66.0); PLATELET COUNT, AUTOMATED 196 10^3/uL (150-450); RED BLOOD COUNT 3.37 10^6/uL (4.00-5.40); WHITE BLOOD COUNT 8.2 10^3/uL (4.0-10.0)
[2021-12-30 06:34] LABS: HEMOGLOBIN 6.6 g/dl (12.0-15.5)
[2021-12-30 06:56] LABS: ALT/SGPT 12 U/L (12-78); BILIRUBIN,TOTAL 0.7 MG/DL (0.2-1.0); CREATININE FOR GFR 0.62 MG/DL (0.55-1.30); GLOMERULAR FILTRATION RATE > 60.0 (>60); LDH LACTATE DEHYDROGENASE 176 U/L (84-246); URIC ACID 4.5 MG/DL (2.6-6.0)
[2021-12-30 07:42] LABS: AMPHETAMINES URINE REFLEX NEGATIVE (NEGATIVE); BARBITURATES URINE REFLEX NEGATIVE (NEGATIVE); BENZODIAZEPINES URINE REFLEX NEGATIVE (NEGATIVE); CANNABINOIDS URINE REFLEX NEGATIVE (NEGATIVE); COCAINE METABOLITE URINE REFLE NEGATIVE (NEGATIVE); METHADONE URINE REFLEX NEGATIVE (NEGATIVE); PHENCYCLIDINE URINE REFLEX NEGATIVE (NEGATIVE); TOTAL PROTEIN,RANDOM URINE 23.6 MG/DL (0.0-12.0)
[2021-12-30 07:46] LABS: OPIATES URINE REFLEX PENDING CONFIRMATION (NEGATIVE)
[2021-12-30] MEDS ORDERED: PENICILLIN G POTASSIUM IV 2.5 MU in IV 1 EA IV SCH ×2 (10:30→11:00)
[2021-12-30 11:15] LABS: HIV 1&2 SCREEN CENTAUR NEGATIVE (NEGATIVE)
[2021-12-30 11:18] LABS: HEPATITIS C VIRUS ABY INDEX > 11.0 INDEX (<0.8)
[2021-12-30] MEDS ORDERED: OXYTOCIN DRIP 30 UNITS in IV 1 EA IV SCH ×2 (11:55→14:00)
[2021-12-30] MEDS ORDERED: FENTANYL 2MCG/ML ROPIVACAINE 0.2% IN 0.9% NACL 100ML IVBAG As Ordered ONE (12:29)
[2021-12-30] MEDS ORDERED: REFRIGERATOR IV KEYS XX PRN (12:45)
[2021-12-30] MEDS ORDERED: diphenhydrAMINE 50MG/ML VIAL (J1200) IV PRN (12:45)
[2021-12-30] MEDS ORDERED: ePHEDrine SULFATE 25 MG/5 ML(5MG/ML) SYRINGE IV PRN (12:45)
[2021-12-30] MEDS ORDERED: FENTANYL/ROPIVACAINE/NACL BAG 100 ML EPIDURAL SCH (12:45)
[2021-12-30] MEDS ORDERED: ONDANSETRON 4MG/2ML VIAL IV PRN (12:45)
[2021-12-30] MEDS ORDERED: EPIDURAL/PCA KEYS XX PRN (12:45)
[2021-12-30] MEDS ORDERED: EPIDURAL COMMENT XX SCH (12:45)
[2021-12-30] MEDS ORDERED: NALOXONE INJ 0.4MG/1ML VIAL (J2310 PER 1MG) IV PRN (12:45)
[2021-12-30] MEDS ORDERED: LACTATED RINGER'S 1000 ML IV PRN (12:45)
[2021-12-30] MEDS ORDERED: MEASLES,MUMPS,RUBELLA VACCINE INJ (MMR-II) (90707) SC SCH (14:00)
[2021-12-30] MEDS ORDERED: DOCUSATE SODIUM 100MG CAPSULE PO PRN (14:00)
[2021-12-30] MEDS ORDERED: IBUPROFEN 600MG TAB PO PRN (14:00)
[2021-12-30] MEDS ORDERED: ACETAMINOPHEN TAB 650MG DOSE (2X325MG) PO PRN (14:00)
[2021-12-30] MEDS ORDERED: METHYLERGONOVINE MALEATE 0.2 MG TAB PO PRN (14:00)
[2021-12-30] MEDS ORDERED: RHOGAM 300 MCG (1500 IU) INJ (J2790) IM SCH (14:00)
[2021-12-30] MEDS ORDERED: ACETAMINOPHEN 500 MG TAB PO PRN (14:00)
[2021-12-30] MEDS ORDERED: DIBUCAINE 1% OINTMENT 30GM TOP PRN (14:00)
[2021-12-30] MEDS ORDERED: IBUPROFEN 800 MG TAB PO PRN (14:00)
[2021-12-31] VITALS (12 sets, daily range): BP systolic 108–138; BP diastolic 53–81
[2021-12-31 08:03] LABS: MEAN CORPUSCULAR HEMOGLOBIN 19.9 pg (27.0-33.0); MEAN CORPUSCULAR HGB CONC 28.5 g/dl (32.0-36.5); MEAN CORPUSCULAR VOLUME 69.7 fl (80.0-96.0); PLATELET COUNT, AUTOMATED 151 10^3/uL (150-450); RED BLOOD COUNT 2.67 10^6/uL (4.00-5.40); WHITE BLOOD COUNT 8.8 10^3/uL (4.0-10.0)
[2021-12-31 08:06] LABS: HEMATOCRIT 18.6 % (36.0-47.0); HEMOGLOBIN 5.3 g/dl (12.0-15.5)
[2021-12-31] MEDS: PRENATAL VITAMINS CHEWABLE TABLET PO SCH ×2 (09:35→10:01)
[2021-12-31] MEDS ORDERED: ACETAMINOPHEN TAB 650MG DOSE (2X325MG) PO SCH (10:45)
[2021-12-31] MEDS ORDERED: diphenhydrAMINE 25MG CAP PO SCH (10:45)
[2021-12-31 14:14] LABS: HEPATITIS C QUANTITATION 20 IU/mL (.)
[2022-01-05 14:08] LABS: Codeine Negative (Cutoff=200); GC Morphine 3204 ng/mL (Cutoff=200); Morphine Positive (.); Opiates Positive (.)
== END 2021-12-31 20:05 | disposition left against medical advice (07) | DRG 560 ==
LOC: M LDO 05:06 → M LDI 05:40 → M OBS 15:21
PROVIDERS: ADMIT Obstetrics & Gynecology; ATTEND Advanced Practice Midwife
PROC: 10E0XZZ Delivery of Products of Conception, External Approach (ICD-10-PCS; principal; 2021-12-30)
PROC: 30233N1 Transfusion of Nonautologous Red Blood Cells into Peripheral Vein, Percutaneous Approach (ICD-10-PCS; 2021-12-31)
DX: O69.81X0 Labor and delivery complicated by cord around neck, without compression, not applicable or unspecified (principal); D64.9 Anemia, unspecified; O99.02 Anemia complicating childbirth; Z37.0 Single live birth; Z3A.38 38 weeks gestation of pregnancy; F11.10 Opioid abuse, uncomplicated; O99.324 Drug use complicating childbirth

== ENCOUNTER → 2023-11-04 | Outpatient (CLI) | payer OTHER | LOC: M RAD 14:26 | PROVIDERS: ATTEND Physician Assistant | DX: Z34.82 Encounter for supervision of other normal pregnancy, second trimester (principal) ==